=== PATIENT | male | born 1995 | race Caucasian/White ===

== ENCOUNTER 2017-03-15 16:56 | Emergency (ER) | payer OTHER ==
[~2017-03-15] VITALS: Ht 175.2 cm; Wt 54.4 kg
[~2017-03-15 16:56] MED LIST: AMOXICILLIN500 MG PO; CLINDAMYCIN HC300 MG PO; Motrin,Rufen800 MG PO; ULTRAM50 MG PO; ZOFRAN ODT4 MG SL
== END 2017-03-15 17:43 | disposition home or self-care (01) ==
LOC: ED 16:56
DX: Z00.8 Encounter for other general examination (principal); F17.200 Nicotine dependence, unspecified, uncomplicated; Z88.1 Allergy status to other antibiotic agents

== ENCOUNTER 2018-09-04 14:56 | Emergency (ER) | payer OTHER ==
[~2018-09-04] VITALS: Ht 175.2 cm; Wt 63.5 kg
[2018-09-04 16:07] LABS: BILIRUBIN NEGATIVE (NEGATIVE); BLOOD TRACE-LYSED (NEGATIVE); CLARITY SL CLOUDY (CLEAR); COLOR YELLOW (YELLOW); GLUCOSE NEGATIVE (NEGATIVE); KETONE TRACE (NEGATIVE); LEUKO ESTERASE 2+ (NEGATIVE); NITRITE NEGATIVE (NEGATIVE); PH 5.5 (5.0-9.0); SPECIFIC GRAVITY 1.025 (1.005-1.030); UROBILINOGEN 0.2 E.U./dl (0.2-1.0)
[2018-09-04 16:23] LABS: WBC TNTC wbc/hpf (0-5)
[2018-09-07 10:21] LABS: GONOCOCCUS BY NAA Positive (Negative)
[2018-09-07] MEDS ORDERED: FACTIVE PO (10:53)
[2018-10-30] MEDS ORDERED: XARE15TA PO (18:12)
[2018-10-30] MEDS ORDERED: AUGMENTIN 875-875 MG PO (18:12)
== END 2018-09-04 15:37 | disposition home or self-care (01) ==
LOC: ED 14:56
PROVIDERS: Nurse Practitioner Family
DX: R36.9 Urethral discharge, unspecified (principal); R30.0 Dysuria; R03.0 Elevated blood-pressure reading, without diagnosis of hypertension; Z88.1 Allergy status to other antibiotic agents

== ENCOUNTER 2018-09-07 15:13 | Emergency (ER) | payer OTHER ==
[~2018-09-07] VITALS: Ht 175.2 cm; Wt 63.5 kg
--- NOTE | ~2018-09-07 | PR ---
[place], [place] PROGRESS NOTE NAME: NAMITA [facility] #: [id number] UNIT #: [id number] ROOM: DOCTOR: YULIYA RODRIGUEZ MD BIRTHDATE: [birth year] DOS: 10/29/2018 SUBJECTIVE: The patient is starting to feel better. Swelling and redness in his ankle were improving. OBJECTIVE: VITAL SIGNS: Blood pressure 127/59, breathing normally, heart rate of 61 beats per minute, temperature 99.4 degrees Fahrenheit. GENERAL APPEARANCE: The patient is alert and oriented x 3, in no visible distress. HEENT AND NECK: Exam within normal limits. CARDIOVASCULAR SYSTEM: Heart rate is regular in rate and rhythm. S1 and S2 normally audible. LUNGS: Clear to auscultation. ABDOMEN: Soft, nontender. No obvious organomegaly. Bowel sounds are present. EXTREMITIES: Without significant cyanosis or edema. IMPRESSION: 1. The patient with bilateral ankle cellulitis, being treated with Rocephin. 2. Acute nonocclusive deep vein thrombosis with distal left superficial femoral vein. The patient is anticoagulated with apixaban. 3. History of drug abuse. Urine drug screen was not performed in the ER, but the patient says he has previous history of opioid abuse, he still takes marijuana, smokes cigarettes and alcohol. YULIYA RODRIGUEZ MD CM:PNTRANS [id number] YULIYA RODRIGUEZ MD 10/31/18 1217 LANCE [email or web address]
[~2018-09-07 15:13] MED LIST changes: +FACTIVE PO
[2018-10-30] MEDS ORDERED: AUGMENTIN 875-875 MG PO (18:12)
[2018-10-30] MEDS ORDERED: XARE15TA PO (18:12)
== END 2018-09-07 15:50 | disposition home or self-care (01) ==
LOC: ED 15:13
DX: A54.9 Gonococcal infection, unspecified (principal); Z20.2 Contact with and (suspected) exposure to infections with a predominantly sexual mode of transmission

== ENCOUNTER 2018-11-17 23:37 | Emergency (ER) | payer OTHER ==
[~2018-11-17] VITALS: Wt 59.0 kg
[~2018-11-17 23:37] MED LIST changes: +AUGMENTIN 875-875 MG PO; +XARE15TA PO
[2018-11-18] MEDS ORDERED: TYLENOL325 M1 PO (00:08)
== END 2018-11-18 00:20 ==
LOC: ED 23:37
DX: M79.604 Pain in right leg (principal); M79.605 Pain in left leg; M79.89 Other specified soft tissue disorders; Z86.73 Personal history of transient ischemic attack (TIA), and cerebral infarction without residual deficits; Z79.2 Long term (current) use of antibiotics; Z79.899 Other long term (current) drug therapy

== ENCOUNTER 2018-12-09 02:15 | Emergency (ER) | payer OTHER ==
[~2018-12-09] VITALS: Ht 172.7 cm; Wt 72.6 kg
[~2018-12-09 02:15] MED LIST changes: +TYLENOL325 M1 PO
[2018-12-09 02:56] LABS: HEMATOCRIT 35.1 % (42.0-52.0); HEMOGLOBIN 11.7 g/dl (14.0-18.0); MEAN CORPUSCULAR HGB 32.3 pg (27.0-31.0); MEAN CORPUSCULAR HGB CONC 33.3 g/dl (33.0-37.0); MEAN PLATELET VOLUME 8.5 fl (9.6-12.3); PLATELET COUNT AUTOMATED 187 10*3/uL (130-400); RED BLOOD COUNT 3.62 10*6/uL (4.50-5.90); RED CELL DISTRI WIDTH 14.6 % (0-14.5); WHITE BLOOD COUNT 10.3 10*3/uL (4.8-10.8)
[2018-12-09 03:07] LABS: INTERNATIONAL NORM RATIO 1.1 (2.0-3.5)
[2018-12-09 03:08] LABS: BUN 7 mg/dl (7-24); CHLORIDE 110 mmol/L (98-107); CREATININE 0.96 mg/dL (0.70-1.30); POTASSIUM 2.9 mmol/L (3.5-5.1); SODIUM 142 mmol/L (136-145)
[2018-12-09 03:16] LABS: ATYPICAL LYMPHS 8 % (0-0); TOTAL CELLS COUNTED 100 #CELLS
[2018-12-09 03:17] LABS: PLATELET SUFFICIENCY NORMAL (NORMAL); POLYCHROMASIA SLIGHT
== END 2018-12-09 03:20 | disposition short-term general hospital (02) ==
LOC: ED 02:15
PROVIDERS: Emergency Medicine Emergency Medical Services
DX: S31.819A Unspecified open wound of right buttock, initial encounter (principal); S00.83XA Contusion of other part of head, initial encounter; Z79.899 Other long term (current) drug therapy; Z86.73 Personal history of transient ischemic attack (TIA), and cerebral infarction without residual deficits; X95.8XXA Assault by other firearm discharge, initial encounter; Y93.89 Activity, other specified; Y92.59 Other trade areas as the place of occurrence of the external cause; Y99.8 Other external cause status

== ENCOUNTER → 2019-01-01 | Outpatient (CLI) | payer OTHER ==
[2019-01-01 17:30] LABS: BASO % 0.6 % (0.0-1.0); EOS # 0.1 10*3/uL (0.0-0.4); EOS % 1.4 % (1.0-4.0); HEMATOCRIT 36.2 % (42.0-52.0); HEMOGLOBIN 12.4 g/dl (14.0-18.0); LYMPH # 2.9 10*3/uL (1.3-4.4); LYMPH % 56.4 % (27.0-41.0); MEAN CELL VOLUME 97.3 fl (80.0-94.0); MEAN CORPUSCULAR HGB 33.3 pg (27.0-31.0); MEAN CORPUSCULAR HGB CONC 34.3 g/dl (33.0-37.0); MONO # 0.4 10*3/uL (0.1-1.0); NEUT # 1.7 10*3/uL (2.3-7.9); NEUT % 33.4 % (47.0-73.0); PLATELET COUNT AUTOMATED 220 10*3/uL (130-400); RED BLOOD COUNT 3.72 10*6/uL (4.50-5.90); RED CELL DISTRI WIDTH 14.6 % (0-14.5); WHITE BLOOD COUNT 5.1 10*3/uL (4.8-10.8)
[2019-01-01 17:57] LABS: ALBUMIN 3.7 gm/dl (3.1-4.5); ALKALINE PHOSPHATASE 109 U/L (45-117); BUN 6 mg/dl (7-24); CHLORIDE 104 mmol/L (98-107); CREATININE 0.88 mg/dL (0.70-1.30); POTASSIUM 3.6 mmol/L (3.5-5.1); SGOT/AST 20 IU/L (3-35); SGPT/ALT 25 U/L (12-78); SODIUM 140 mmol/L (136-145); TOTAL PROTEIN 7.7 gm/dL (6.4-8.2)
== END | disposition home or self-care (01) ==
LOC: LAB 16:11
PROVIDERS: Family Medicine
DX: T14.8XXA Other injury of unspecified body region, initial encounter (principal); D64.9 Anemia, unspecified; M79.604 Pain in right leg; X58.XXXA Exposure to other specified factors, initial encounter; Y93.89 Activity, other specified; Y92.89 Other specified places as the place of occurrence of the external cause; Y99.8 Other external cause status